=== PATIENT | male | born 1945 | race Hispanic/Latino ===

== ENCOUNTER 2024-07-29 12:42 | Emergency (ER) | payer MEDICARE ==
[~2024-07-29] VITALS: Ht 162.6 cm; Wt 76.4 kg
[2024-07-29] MEDS ORDERED: LOSARTAN POTAS100 MG PO (13:38)
[2024-07-29] MEDS: ONDANSETRON HCL INJ 2MG/ML 2ML 2 MG/ML VIAL IV STA (14:24)
[2024-07-29] MEDS: SODIUM CHLORIDE 0.9% 1000ML 1,000 ML IV SCH (14:25)
[2024-07-29 16:11] VITALS: PULSE 73; RESP 21; TEMP 97.4
[2024-07-29] MEDS ORDERED: ONDANSETRON ODT4 MG PO (17:33)
[2024-07-29] MEDS ORDERED: LOPERAMIDE2 MG PO (17:34)
[2024-07-29 17:52] VITALS: BP 133/70; PULSE 70; RESP 16; TEMP 97.5; O2SAT 98
== END 2024-07-29 17:45 | disposition home or self-care (01) ==
LOC: FSED 12:48
DX: R11.2 Nausea with vomiting, unspecified (principal); K52.9 Noninfective gastroenteritis and colitis, unspecified; E86.0 Dehydration; E78.5 Hyperlipidemia, unspecified; N40.0 Benign prostatic hyperplasia without lower urinary tract symptoms; I10 Essential (primary) hypertension; R94.31 Abnormal electrocardiogram [ECG] [EKG]
CPT/HCPCS: 71046; 74177; 80048; 80076; 81003; 82553; 84484; 85025; 93005; 99283; J2405; J7030